=== PATIENT | female | born 1950 | race Caucasian/White ===

== ENCOUNTER 2018-09-11 08:04 | Day surgery (SDC) | payer MEDICARE, OTHER ==
--- NOTE | 2018-09-11 06:45 | History and Physical - [place] ---
CHIEF COMPLAINT/HISTORY OF CHIEF COMPLAINT: This patient with a history of intractable lumbar radiculopathy has an implanted spinal opioid infusion system with Hydromorphone. Recent refills and reprograming's identified battery depletion. She is here for battery replacement on an outpatient basis. PAST MEDICAL HISTORY: Cardiovascular disease, gastrointestinal disease and thyroid disease. PAST SURGICAL HISTORY: Gallbladder surgery, breast surgery, and pump implant. MEDICATIONS ON ADMISSION: List to be provided. ALLERGIES: TYLENOL WITH CODEINE. FAMILY/PSYCHOSOCIAL HISTORY: Family history - Noncontributory. SYSTEMS REVIEW: The patient seems appropriate in no acute distress. The remainder of the systems review is positive for sleep disturbance, murmur, and chronic pain. PHYSICAL EXAMINATION: Height is 5'6", weight is 130. No vital signs. HEENT: Within normal limits. LUNGS: Clear. HEART: Regular rate and rhythm. ABDOMEN: Nontender. MUSCULOSKELETAL: Examination of the musculoskeletal system shows the pump at the right posterior gluteal margin. The incisional sites are intact. No breakdown of the sites. NEUROLOGIC: Cranial nerves are intact. Primary pain pattern lower extremity. Examination shows diffuse tenderness. Range of motion causing pain throughout the front and back surface of both legs. Mild sensory and mild motor weakness both legs. IMPRESSION: 1. LUMBAR RADICULOPATHY, ICD-10 CODE M54.16 AND M54.17. 2. IMPLANTED SPINAL OPIOID INFUSION SYSTEM WITH HYDROMORPHONE, BATTERY DEPLETION. PLAN: The patient is here on an outpatient basis for battery replacement. The procedure will be considered outpatient although an overnight stay will be evaluated. No parameter changes will be made. JOB NUMBER: [id number] [facility]
[~2018-09-11 08:04] MED LIST: ACETAMINOPHEN 1,000 MG/100 ML BTL IV ONE; CEFAZOLIN 2 Gram 2 GM/50 ML BAG IVPB ONE; FAMOTIDINE 20MG TABLET PO ONE; HYDROMORPHONE HCL 0.6 GM in 0.9 % SODIUM CHLORIDE 10ML VIA 20 ML IV ONE; HYDROMORPHONE HCL IV ONE; HYDROMORPHONE PF 2MG/ML AMP 0.008 MG in 0.9 % SODIUM CHLORIDE 10ML VIA 0.996 ML IV ONE; MECLIZINE 25 MG TABLET PO ONE; METOCLOPRAMIDE 10 MG TABLET PO ONE; SODIUM CHLORIDE 0.9% IV ONE
[2018-09-11] MEDS ORDERED: PROPOFOL 10 MG/ML VIAL IV ONE (08:05)
[2018-09-11] MEDS ORDERED: CEFAZOLIN 1G VIAL IM ONE (08:05)
[2018-09-11] MEDS ORDERED: LIDOCAINE 1% W/EPI 1:200,000 MPF 30ML SQ ONE (08:05)
[2018-09-11] MEDS ORDERED: KETAMINE HCL 100MG/1ML VIAL INJ ONE (08:05)
[2018-09-11] MEDS ORDERED: MIDAZOLAM HCL 2MG/2ML VIAL IV ONE (08:05)
[2018-09-11] MEDS ORDERED: LIDOCAINE 2% MDV (20MG/ML) 20ML VIAL IV ONE (08:05)
[2018-09-11] MEDS ORDERED: BUPIVACAINE 0.5% W/EPI MPF 30 ML VIAL IVP ONE (08:05)
[2018-09-11] MEDS ORDERED: 0.9 % SODIUM CHLORIDE 10 ML VIAL IVP ONE (08:05)
--- NOTE | 2018-09-11 21:00 | Operative Note ---
DATE OF SURGERY: 09/11/2018. PREOPERATIVE DIAGNOSES: 1. LUMBAR RADICULOPATHY, ICD-10 CODE = M54.16 AND M54.17. 2. PROGRAMMABLE PUMP WITH SPINAL INFUSION HYDROMORPHONE, BATTERY DEPLETION. SURGERY: 1. FLUOROSCOPIC-GUIDED INCISION, SUBCUTANEOUS DISSECTION AND REMOVAL AND REPLACEMENT OF PROGRAMMABLE PUMP AT RIGHT POSTERIOR GLUTEAL MARGIN. 2. DIAGNOSTIC MYELOGRAPHY WITH RADIOLOGIC SUPERVISION AND INTERPRETATION. 3. PROGRAMMING OF PUMP TO DELIVER BY CONTINUOUS INFUSION HYDROMORPHONE AT 1.15 MG PER DAY. SURGEON: ELSY GRAF D.O. ANESTHESIA: LOCAL SEDATION. ANESTHESIA PROVIDER: YOLY ARANA CRNA. INDICATIONS: This patient presents with a history of an intractable lumbar radiculopathy and a spinal opioid infusion system infusing Hydromorphone. Over the last number of refills and reprogrammings, battery depletion was identified. She is here for battery replacement surgery. SURGERY: Intravenous line, vital sign monitoring, IV sedation, prepped and draped sterile technique, under imaging the pump subcutaneous pouch right posterior margin gluteal margin marked, skin infiltrated, incision made and subcutaneous dissection was conducted to the Dacron sleeve, which was opened. The pump was then exteriorized. While the pump was exteriorized, a #20 gauge Hernández needle was inserted into the access port and 1 mL of catheter contents was aspirated, clearing the catheter of opioid and CSF mixture. The pump was then from the indwelling catheter. A new pump, 20 mL programmable, was placed onto the field prefilled Hydromorphone. The pump was then interfaced with the indwelling catheter. Antibiotic irrigation and Bovie for hemostasis. The pump was placed into the pouch and then a #24 gauge Hernández needle was inserted into the access port and contrast was then injected through the access port. The resulting myelogram with radiologic supervision and interpretation showed contrast moving through the internal network of the pump without problems. The pump/catheter connection was then visualized as contrast moved through it. There were no kinks, bends, or leaks. The catheter tip at T12 identified, appropriate myelogram flow characteristics were noted confirming functionality. At that point, an Ethibond suture was used to close the Dacron sleeve and the incisional line itself was closed using STRATAFIX suture #2-0 fascia, #3-0 skin. Dermabond closure was then placed approximating the edges of the wound. The pump was then programmed to deliver the standard dose of Hydromorphone at 1.15 mg a day. She was transported to the Recovery Room stable , no side-effects from the procedure or the sedation. She was monitored until stable and then prepared for discharge. DISCHARGE INSTRUCTIONS: 1. The site is to remain clean and dry. No showering or bathing in any way that would disrupt dressings. If it happens, contact the clinic. 2. Standard medications resumed including the antibiotic Levaquin 500 mg once a day for 14 days. 3. The office will contact the patient in the next 24 to 48 hours to set up an appointment in 7 to 10 days to evaluate the incision. Until then, she is to keep her activities low. All other instructions provided, numbers to contact if problems given. She will be discharged to home. cc: Dr. Gunderson JOB NUMBER: [id number] [facility]
== END 2018-09-11 11:30 | disposition home or self-care (01) ==
LOC: SUR 08:04
PROVIDERS: ATTEND Pain Medicine Interventional Pain Medicine
DX: M54.16 Radiculopathy, lumbar region (principal); M54.17 Radiculopathy, lumbosacral region; E03.9 Hypothyroidism, unspecified; F17.210 Nicotine dependence, cigarettes, uncomplicated
CPT/HCPCS: 62362; 00300; 62368; Q9967; J0690; J1170; J3490; C1776